=== PATIENT | male | born 1990 | race Caucasian/White ===

== ENCOUNTER 2017-10-28 20:48 | Emergency (ER) | payer OTHER ==
[2017-10-28 21:05] VITALS: RESP 16; TEMP 98.1
--- NOTE | 2017-10-28 21:42 | EDPHY ---
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 No paresthesia. No foreign body sensation. PHYSICAL EXAM (Prior to examination, patient consented to physical exam, hands were washed and my usual and customary physical exam procedures followed) 1) GENERAL: Well-developed, well-nourished, alert and oriented. Appears to be in no acute distress. 2) HEAD: Normocephalic 3) HEENT: sclera anicteric 4) LUNGS: Breathing comfortably. 5) SKIN: On the right 4th MCP dorsal aspect he has a 2 cm well-demarcated superficial laceration. 6) MUSCULOSKELETAL: Flexor and extensor function at the MCP are intact. I see no evidence of traumatic arthrotomy. 7) NEUROLOGIC: Full sensation and two-point discrimination intact (Brisa,Laura Mandi) Constitutional: Initial Vital Signs Temperature (C) 36.7 C 10/28/17 21:04 Heart Rate 68 10/28/17 21:04 Respiratory Rate 16 10/28/17 21:04 Blood Pressure 131/85 H 10/28/17 21:04 O2 Sat (%) 96 10/28/17 21:04 O2 Delivery Mode Room Air Allergies/Adverse Reactions: No Known Allergies Allergy (Unverified 10/28/17 21:03) Home Medications: Medication Instructions Recorded None 10/16/09 [facility]/Departure - [facility] Procedures: Procedure: Laceration repair. I explained the indications, risks and benefits for both laceration repair and anesthetic administration. Verbal consent was obtained from the patient. The laceration on the right dorsal hand was anesthetized using 0.5% bupivicaine with epinephrine. After anesthetic administered the patient was observed for a period of time and had no apparent adverse effects. The wound was cleaned, prepped, draped in normal sterile fashion and explored to its base. No foreign body seen, no foreign bodies palpated. There were no deep structures involved. No traumatic arthrotomy. The wound was repaired with 4 simple interrupted 5 O Prolene sutures. The wound repair was simple. The procedure was performed by myself. Patient has been informed that scarring will occur, although efforts have been made to minimize this. (Laura Ledezma) ED Course/Re-evaluation: The patient was evaluated and managed by the Physician Contract Preparer. My co- signature indicates that I have reviewed this chart and I agree with the findings and plan of care as documented. I am the secondary supervising physician. (Brittaney Car) - Depart Disposition: Home, Routine, Self-Care Clinical Impression: Laceration of right hand Qualifiers: Encounter type: initial encounter Foreign body presence: without foreign body Qualified Code(s): S61.411A - Laceration without foreign body of right hand, initial encounter Condition: Good Instructions: Laceration (ED) Additional Instructions: Return to the ER if you develop redness, swelling, discharge, warmth to the wound, red streaks going up your arm, or any other symptoms that concern you. Referrals: Return, to the ER in 10 days for suture removal [Other] - As per Instructions
[2017-10-28 22:41] VITALS: BP 111/60; PULSE 72; O2SAT 95
== END 2017-10-28 22:39 | disposition home or self-care (01) ==
PROC: 0HQFXZZ Repair Right Hand Skin, External Approach (ICD-10-PCS; principal; 2017-10-28)
DX: S61.411A Laceration without foreign body of right hand, initial encounter (principal); F17.200 Nicotine dependence, unspecified, uncomplicated; W26.8XXA Contact with other sharp object(s), not elsewhere classified, initial encounter; Y99.0 Civilian activity done for income or pay; Y93.89 Activity, other specified